=== PATIENT | male | born 1950 | race Asian ===

== ENCOUNTER 2017-10-27 18:57 | Inpatient (IN) | payer OTHER ==
[2017-10-27] MEDS ORDERED: ONDANSETRON 4 MG INJ IV (19:30)
[2017-10-27] MEDS ORDERED: hydrALAzine 20 MG INJ IV (19:30)
[2017-10-27] MEDS ORDERED: HYDROCODONE/APAP (5/325) TAB PO (19:30)
[2017-10-27] MEDS ORDERED: DOCUSATE SODIUM 100 MG CAP PO (19:30)
[2017-10-27] MEDS ORDERED: NACL 0.9% 3 ML SYG IV (19:30)
[2017-10-27] MEDS ORDERED: ACETAMINOPHEN 325 MG TAB PO (19:30)
[2017-10-27] MEDS ORDERED: ZOLPIDEM 5 MG TAB PO (19:30)
[2017-10-27] MEDS ORDERED: NITROGLYCERIN (SL) 0.4 MG TAB SL (19:30)
[2017-10-27] MEDS ORDERED: morphine LIQ (10 MG/5 ML) CUP PO (20:00)
[2017-10-28 01:40] LABS: TROPONIN-I 0.575 ng/ml (0.000-0.120)
[2017-10-28 05:49] LABS: ADD MAN DIFF? NO
[2017-10-28 05:55] LABS: BASOPHILS % 0.3 % (0.0-2.0); EOSINOPHILS # 0.3 10^3/ul (0.0-0.5); EOSINOPHILS % 5.1 % (0.0-7.0); HEMATOCRIT 27.4 % (42.0-52.0); HEMOGLOBIN 9.2 g/dl (14.0-18.0); LYMPHOCYTES # 1.7 10^3/ul (0.8-2.9); LYMPHOCYTES % 29.5 % (15.0-51.0); MEAN CORPUSCULAR HEMOGLOBIN 32.2 pg (29.0-33.0); MEAN CORPUSCULAR HGB CONC 33.6 g/dl (32.0-37.0); MEAN CORPUSCULAR VOLUME 95.8 fl (82.0-101.0); MEAN PLATELET VOLUME 11.2 fl (7.4-10.4); MONOCYTE # 0.3 10^3/ul (0.3-0.9); MONOCYTES % 5.6 % (0.0-11.0); NEUTROPHIL # 3.4 10^3/ul (1.6-7.5); NEUTROPHILS % 59.2 % (39.0-77.0); PLATELET COUNT 166 10^3/UL (140-415); RED BLOOD COUNT 2.86 10^6/ul (4.70-6.10); RED CELL DISTRIBUTION WIDTH 12.5 % (11.5-14.5)
[2017-10-28 05:55] LABS: WHITE BLOOD COUNT 5.7 10^3/ul (4.8-10.8)
[2017-10-28 06:11] LABS: ANION GAP 17 (8-16); BLOOD UREA NITROGEN 54 mg/dl (7-20); CALCIUM 7.9 mg/dl (8.4-10.2); CARBON DIOXIDE 24 mmol/L (21-31); CHLORIDE 110 mmol/L (97-110); CHOL/HDL RATIO 4.1 RATIO; CHOLESTEROL 167 mg/dl (100-200); CREATININE 10.13 mg/dl (0.61-1.24); GLUCOSE 82 mg/dl (70-220); HDL CHOLESTEROL 40 mg/dl (30-78); LDL CHOLESTEROL,CALCULATED 99 mg/dl; MAGNESIUM 2.1 mg/dl (1.7-2.5); PHOSPHORUS 6.8 mg/dl (2.5-4.9); POTASSIUM 4.8 mmol/L (3.5-5.1); SODIUM 146 mmol/L (135-144); TRIGLYCERIDES 139 mg/dl (0-149)
[2017-10-28 06:24] LABS: FREE THYROXINE INDEX (Calc) 2.26 ug/ml (0.65-3.89); T3 UPTAKE 36.4 % (23.5-40.5); T4 (THYROXINE) 6.2 ug/dl (5.5-11.0)
[2017-10-28 06:34] LABS: TROPONIN-I 0.566 ng/ml (0.000-0.120)
[2017-10-28 06:59] LABS: HEMOGLOBIN A1C 5.1 % (0-5.9)
[2017-10-28] MEDS: LOSARTAN 25 MG TAB PO (08:30)
[2017-10-28] MEDS: AMLODIPINE 10 MG TAB PO (08:30)
[2017-10-28] MEDS: ENOXAPARIN 40 MG/0.4 ML SYG SC (08:33)
[2017-10-28] MEDS: HEPARIN 5,000 UNIT/0.5 ML VIAL SC ×3 (09:02→21:30)
[2017-10-28 13:06] LABS: TROPONIN-I 0.471 ng/ml (0.000-0.120)
[2017-10-29 07:05] LABS: ANION GAP 19 (8-16); BLOOD UREA NITROGEN 60 mg/dl (7-20); CALCIUM 7.7 mg/dl (8.4-10.2); CARBON DIOXIDE 21 mmol/L (21-31); CHLORIDE 110 mmol/L (97-110); CREATININE 11.64 mg/dl (0.61-1.24); GLUCOSE 78 mg/dl (70-220); POTASSIUM 4.1 mmol/L (3.5-5.1); SODIUM 146 mmol/L (135-144); TROPONIN-I 0.393 ng/ml (0.000-0.120)
[2017-10-29] MEDS: ASPIRIN 81 MG TAB PO (08:51)
[2017-10-29] MEDS: HEPARIN 5,000 UNIT/0.5 ML VIAL SC (08:55)
[2017-10-29] MEDS: AMLODIPINE 10 MG TAB PO ×2 (08:56→14:51)
[2017-10-29] MEDS: LOSARTAN 25 MG TAB PO ×2 (08:56→14:50)
[2017-10-29 12:37] LABS: HEPATITIS B SURFACE ANTIGEN NEGATIVE (NEGATIVE)
== END 2017-10-29 15:57 | disposition home or self-care (01) | DRG 149 ==
LOC: MS3 18:57
PROVIDERS: Internal Medicine
PROC: 5A1D70Z Performance of Urinary Filtration, Intermittent, Less than 6 Hours Per Day (ICD-10-PCS; 2017-10-28)
PROC: 5A1D70Z Performance of Urinary Filtration, Intermittent, Less than 6 Hours Per Day (ICD-10-PCS; principal; 2017-10-29)
DX: R42 Dizziness and giddiness (principal); I21.4 Non-ST elevation (NSTEMI) myocardial infarction; N18.6 End stage renal disease; I21.A1 Myocardial infarction type 2; N17.9 Acute kidney failure, unspecified; I12.0 Hypertensive chronic kidney disease with stage 5 chronic kidney disease or end stage renal disease; E86.0 Dehydration; Z99.2 Dependence on renal dialysis; Z87.891 Personal history of nicotine dependence; Z79.82 Long term (current) use of aspirin; Z91.15 Patient's noncompliance with renal dialysis
CPT/HCPCS: 80048; 80061; 83036; 83735; 84100; 84436; 84479; 84484; 85025; 87340; 90935; 93005; 93306; 97161

== ENCOUNTER 2018-01-21 18:28 | Emergency (ER) | payer OTHER ==
[2018-01-21 19:59] LABS: ADD MAN DIFF? NO
[2018-01-21 20:08] LABS: WHITE BLOOD COUNT 5.9 10^3/ul (4.8-10.8)
[2018-01-21 20:08] LABS: BASOPHILS % 0.3 % (0.0-2.0); EOSINOPHILS # 0.2 10^3/ul (0.0-0.5); EOSINOPHILS % 2.5 % (0.0-7.0); HEMATOCRIT 29.1 % (42.0-52.0); HEMOGLOBIN 9.6 g/dl (14.0-18.0); LYMPHOCYTES # 1.7 10^3/ul (0.8-2.9); MEAN CORPUSCULAR HEMOGLOBIN 33.9 pg (29.0-33.0); MEAN CORPUSCULAR VOLUME 102.8 fl (82.0-101.0); MEAN PLATELET VOLUME 10.2 fl (7.4-10.4); MONOCYTE # 0.3 10^3/ul (0.3-0.9); MONOCYTES % 5.8 % (0.0-11.0); NEUTROPHIL # 3.7 10^3/ul (1.6-7.5); NEUTROPHILS % 63.1 % (39.0-77.0); PLATELET COUNT 207 10^3/UL (140-415); RED BLOOD COUNT 2.83 10^6/ul (4.70-6.10); RED CELL DISTRIBUTION WIDTH 14.8 % (11.5-14.5)
[2018-01-21 20:19] LABS: ANION GAP 23 (8-16); BLOOD UREA NITROGEN 88 mg/dl (7-20); CALCIUM 8.4 mg/dl (8.4-10.2); CARBON DIOXIDE 16 mmol/L (21-31); CHLORIDE 110 mmol/L (97-110); CREATININE 12.15 mg/dl (0.61-1.24); GLUCOSE 87 mg/dl (70-220); POTASSIUM 4.7 mmol/L (3.5-5.1); SODIUM 144 mmol/L (135-144)
[2018-01-21 20:37] LABS: INR 1.02; PROTIME 13.5 Sec (11.9-14.9); PT RATIO 1.1
== END 2018-01-21 21:37 | disposition home or self-care (01) ==
LOC: E/R 18:28
DX: T82.598A Other mechanical complication of other cardiac and vascular devices and implants, initial encounter (principal); N18.6 End stage renal disease; I12.0 Hypertensive chronic kidney disease with stage 5 chronic kidney disease or end stage renal disease; Y73.2 Prosthetic and other implants, materials and accessory gastroenterology and urology devices associated with adverse incidents; Z79.82 Long term (current) use of aspirin; Z87.891 Personal history of nicotine dependence
CPT/HCPCS: 80048; 83735; 85025; 85610; 85730; 93931; 99284-25

== ENCOUNTER 2018-02-21 13:34 | Day surgery (SDC) | payer OTHER ==
[2018-02-21] MEDS ORDERED: LIDOCAINE 1% (MDV) 20 ML INJ (14:08)
[2018-02-21] MEDS ORDERED: IODIXANOL LOCM 100 ML BTL ×2 (14:08→14:09)
[2018-02-21 14:20] LABS: ADD MAN DIFF? NO
[2018-02-21 14:22] LABS: BASOPHILS % 0.2 % (0.0-2.0); EOSINOPHILS # 0.3 10^3/ul (0.0-0.5); EOSINOPHILS % 4.7 % (0.0-7.0); HEMATOCRIT 32.8 % (42.0-52.0); HEMOGLOBIN 11.1 g/dl (14.0-18.0); LYMPHOCYTES # 1.2 10^3/ul (0.8-2.9); LYMPHOCYTES % 23.4 % (15.0-51.0); MEAN CORPUSCULAR HEMOGLOBIN 33.7 pg (29.0-33.0); MEAN CORPUSCULAR HGB CONC 33.8 g/dl (32.0-37.0); MEAN CORPUSCULAR VOLUME 99.7 fl (82.0-101.0); MEAN PLATELET VOLUME 10.5 fl (7.4-10.4); MONOCYTE # 0.3 10^3/ul (0.3-0.9); MONOCYTES % 5.1 % (0.0-11.0); NEUTROPHIL # 3.5 10^3/ul (1.6-7.5); NEUTROPHILS % 66.4 % (39.0-77.0); PLATELET COUNT 177 10^3/UL (140-415); RED BLOOD COUNT 3.29 10^6/ul (4.70-6.10)
[2018-02-21 14:22] LABS: WHITE BLOOD COUNT 5.3 10^3/ul (4.8-10.8)
[2018-02-21 14:39] LABS: ALANINE AMINOTRANSFERASE 25 IU/L (13-69); ALBUMIN 4.3 g/dl (3.3-4.9); ALBUMIN/GLOBULIN RATIO 1.07; ALKALINE PHOSPHATASE 67 IU/L (42-121); ANION GAP 23 (8-16); ASPARTATE AMINO TRANSFERASE 13 IU/L (15-46); BLOOD UREA NITROGEN 88 mg/dl (7-20); CALCIUM 8.6 mg/dl (8.4-10.2); CARBON DIOXIDE 18 mmol/L (21-31); CHLORIDE 104 mmol/L (97-110); CREATININE 12.25 mg/dl (0.61-1.24); GLUCOSE 160 mg/dl (70-220); POTASSIUM 5.1 mmol/L (3.5-5.1); SODIUM 140 mmol/L (135-144); TOTAL PROTEIN 8.3 g/dl (6.1-8.1)
[2018-02-21 14:41] LABS: INR 0.93; PROTIME 12.5 Sec (11.9-14.9)
[2018-02-21 15:21] LABS: PARTIAL THROMBOPLASTIN TIME 36.2 Sec (25.0-35.0)
== END 2018-02-21 15:47 | disposition home or self-care (01) ==
LOC: SDS 13:34
DX: I12.0 Hypertensive chronic kidney disease with stage 5 chronic kidney disease or end stage renal disease (principal); N18.6 End stage renal disease; Z79.82 Long term (current) use of aspirin
CPT/HCPCS: 36005; 75820; 80053; 85025; 85610; 85730

== ENCOUNTER 2018-04-19 08:27 | Day surgery (SDC) | payer OTHER ==
[~2018-04-19 08:27] MED LIST: CEFAZOLIN 1 GM INJ
[2018-04-19 09:25] LABS: ADD MAN DIFF? NO
[2018-04-19 09:29] LABS: BASOPHILS % 0.4 % (0.0-2.0); EOSINOPHILS # 0.2 10^3/ul (0.0-0.5); EOSINOPHILS % 3.3 % (0.0-7.0); HEMATOCRIT 32.7 % (42.0-52.0); HEMOGLOBIN 10.8 g/dl (14.0-18.0); LYMPHOCYTES # 0.9 10^3/ul (0.8-2.9); MEAN CORPUSCULAR HEMOGLOBIN 32.2 pg (29.0-33.0); MEAN CORPUSCULAR VOLUME 97.6 fl (82.0-101.0); MEAN PLATELET VOLUME 11.2 fl (7.4-10.4); MONOCYTE # 0.2 10^3/ul (0.3-0.9); MONOCYTES % 4.5 % (0.0-11.0); NEUTROPHIL # 4.1 10^3/ul (1.6-7.5); NEUTROPHILS % 75.6 % (39.0-77.0); PLATELET COUNT 137 10^3/UL (140-415); RED BLOOD COUNT 3.35 10^6/ul (4.70-6.10); RED CELL DISTRIBUTION WIDTH 12.3 % (11.5-14.5)
[2018-04-19 09:29] LABS: WHITE BLOOD COUNT 5.4 10^3/ul (4.8-10.8)
[2018-04-19 09:49] LABS: INR 0.93; PROTIME 12.5 Sec (11.9-14.9)
[2018-04-19 09:51] LABS: ALANINE AMINOTRANSFERASE 22 IU/L (13-69); ALBUMIN 4.4 g/dl (3.3-4.9); ALBUMIN/GLOBULIN RATIO 1.41; ALKALINE PHOSPHATASE 79 IU/L (42-121); ANION GAP 18 (5-13); ASPARTATE AMINO TRANSFERASE 16 IU/L (15-46); BLOOD UREA NITROGEN 80 mg/dl (7-20); CALCIUM 9.2 mg/dl (8.4-10.2); CARBON DIOXIDE 18 mmol/L (21-31); CHLORIDE 108 mmol/L (97-110); CREATININE 12.03 mg/dl (0.61-1.24); Estimated GFR 4 mL/min (>60); GLUCOSE 100 mg/dl (70-220); POTASSIUM 5.4 mmol/L (3.5-5.1); SODIUM 144 mmol/L (135-144); TOTAL PROTEIN 7.5 g/dl (6.1-8.1)
[2018-04-19 10:23] LABS: PARTIAL THROMBOPLASTIN TIME 36.1 Sec (23.0-35.0)
[2018-04-19] MEDS ORDERED: MIDAZOLAM 1 MG/ML 2 ML INJ (10:38)
[2018-04-19] MEDS ORDERED: LIDOCAINE 2% (SDV) 5 ML INJ (10:38)
[2018-04-19] MEDS ORDERED: PROPOFOL 20 ML (10:38)
[2018-04-19] MEDS ORDERED: FENTAnyl 50 MCG/ML VIAL (10:39)
[2018-04-19] MEDS ORDERED: GELATIN SIZE 100 SPONGE ×2 (10:49→12:04)
[2018-04-19] MEDS ORDERED: LIDOCAINE 1% (STERILE-PAK) 30 ML INJ (10:49)
[2018-04-19] MEDS ORDERED: THROMBIN 5000 UNIT VIAL ×2 (10:50→12:04)
[2018-04-19] MEDS ORDERED: HEPARIN 1000 UNITS/NS (A-LINE) 0 ML (10:56)
[2018-04-19] MEDS ORDERED: PROCHLORPERAZINE 10 MG INJ IV (11:00)
[2018-04-19] MEDS ORDERED: OXYCODONE/ACETAMINOPHEN (5/325) TAB PO (11:00)
[2018-04-19] MEDS ORDERED: ONDANSETRON 4 MG INJ IV (11:00)
[2018-04-19] MEDS ORDERED: FENTAnyl 50 MCG/ML VIAL IV (11:00)
[2018-04-19] MEDS ORDERED: MEPERIDINE 25 MG INJ IV (11:00)
[2018-04-19] MEDS ORDERED: hydrALAzine 20 MG INJ IV (11:00)
[2018-04-19] MEDS ORDERED: HYDROmorphONE 1 MG/5 ML IV SYRINGE IV (11:00)
[2018-04-19] MEDS ORDERED: DIPHENHYDRAMINE 50 MG INJ IV (11:00)
[2018-04-19] MEDS ORDERED: LABETALOL HCL 20MG INJ IV (11:00)
[2018-04-19] MEDS ORDERED: METOCLOPRAMIDE 10 MG INJ (11:17)
[2018-04-19] MEDS ORDERED: DEXAMETHASONE 4 MG/ML 1 ML INJ (11:17)
[2018-04-19] MEDS ORDERED: FAMOTIDINE 20 MG INJ (11:17)
[2018-04-19] MEDS ORDERED: ONDANSETRON 4 MG INJ (11:17)
[2018-04-19] MEDS: BUPIVACAINE 0.25% (MPF) 30 ML INJ (12:18)
== END 2018-04-19 15:44 | disposition home or self-care (01) ==
LOC: SDS 08:27
DX: I12.0 Hypertensive chronic kidney disease with stage 5 chronic kidney disease or end stage renal disease (principal); N18.6 End stage renal disease
CPT/HCPCS: 36821; 71045; 80053; 85025; 85610; 85730; 93005

== ENCOUNTER 2018-07-27 11:13 | Day surgery (SDC) | payer OTHER ==
[2018-07-27 12:33] LABS: POTASSIUM 6.3 mmol/L (3.5-5.1)
[2018-07-27] MEDS ORDERED: HEPARIN 1000 UNITS/ML 10 ML INJ (12:51)
[2018-07-27] MEDS ORDERED: LIDOCAINE 1% (MDV) 20 ML INJ (12:51)
[2018-07-27] MEDS ORDERED: IODIXANOL LOCM 50 ML BTL (13:17)
== END 2018-07-27 14:23 | disposition home or self-care (01) ==
LOC: SDS 11:13
DX: T82.49XA Other complication of vascular dialysis catheter, initial encounter (principal); Y84.1 Kidney dialysis as the cause of abnormal reaction of the patient, or of later complication, without mention of misadventure at the time of the procedure; I12.0 Hypertensive chronic kidney disease with stage 5 chronic kidney disease or end stage renal disease; N18.6 End stage renal disease
CPT/HCPCS: 37248; 84132

== ENCOUNTER 2018-09-19 06:06 | Day surgery (SDC) | payer OTHER ==
[2018-09-19] MEDS ORDERED: BUPIVACAINE 0.25% (MPF) 30 ML INJ (06:32)
[2018-09-19] MEDS ORDERED: LIDOCAINE 1% (MPF) 30 ML INJ (06:33)
[2018-09-19 06:52] LABS: ADD MAN DIFF? NO
[2018-09-19 06:54] LABS: BASOPHILS % 0.3 % (0.0-2.0); EOSINOPHILS # 0.3 10^3/ul (0.0-0.5); EOSINOPHILS % 4.8 % (0.0-7.0); HEMATOCRIT 39.1 % (42.0-52.0); HEMOGLOBIN 12.5 g/dl (14.0-18.0); LYMPHOCYTES # 1.4 10^3/ul (0.8-2.9); LYMPHOCYTES % 22.4 % (15.0-51.0); MEAN CORPUSCULAR HEMOGLOBIN 31.6 pg (29.0-33.0); MEAN PLATELET VOLUME 10.8 fl (7.4-10.4); MONOCYTE # 0.2 10^3/ul (0.3-0.9); MONOCYTES % 3.9 % (0.0-11.0); NEUTROPHIL # 4.2 10^3/ul (1.6-7.5); NEUTROPHILS % 68.4 % (39.0-77.0); PLATELET COUNT 196 10^3/UL (140-415); RED BLOOD COUNT 3.95 10^6/ul (4.70-6.10); RED CELL DISTRIBUTION WIDTH 14.4 % (11.5-14.5)
[2018-09-19 06:54] LABS: WHITE BLOOD COUNT 6.2 10^3/ul (4.8-10.8)
[2018-09-19] MEDS ORDERED: SEVOFLURANE 15 MIN (07:00)
[2018-09-19 07:21] LABS: INR 0.95; PARTIAL THROMBOPLASTIN TIME 34.2 Sec (23.0-35.0); PROTIME 12.8 Sec (11.9-14.9)
[2018-09-19 07:23] LABS: ALANINE AMINOTRANSFERASE 11 IU/L (13-69); ALBUMIN 4.5 g/dl (3.3-4.9); ALBUMIN/GLOBULIN RATIO 1.21; ALKALINE PHOSPHATASE 71 IU/L (42-121); ANION GAP 16 (5-13); ASPARTATE AMINO TRANSFERASE 13 IU/L (15-46); BILIRUBIN,INDIRECT 0.1 mg/dl (0-1.1); BILIRUBIN,TOTAL 0.1 mg/dl (0.2-1.3); CALCIUM 9.6 mg/dl (8.4-10.2); CARBON DIOXIDE 21 mmol/L (21-31); CHLORIDE 107 mmol/L (97-110); Estimated GFR 4 mL/min (>60); GLUCOSE 82 mg/dl (70-220); SODIUM 144 mmol/L (135-144); TOTAL PROTEIN 8.2 g/dl (6.1-8.1)
[2018-09-19 07:27] LABS: BLOOD UREA NITROGEN 85 mg/dl (7-20); CREATININE 12.76 mg/dl (0.61-1.24)
[2018-09-19] MEDS ORDERED: PROPOFOL 20 ML (07:34)
[2018-09-19] MEDS ORDERED: LIDOCAINE 2% (SDV) 5 ML INJ (07:34)
[2018-09-19] MEDS ORDERED: CEFAZOLIN 1 GM INJ (07:36)
[2018-09-19] MEDS: HEPARIN 1000 UNITS/ML 10 ML INJ (08:02)
[2018-09-19] MEDS ORDERED: MEPERIDINE 25 MG INJ IV (08:30)
[2018-09-19] MEDS ORDERED: hydrALAzine 20 MG INJ IV (08:30)
[2018-09-19] MEDS ORDERED: MIDAZOLAM 1 MG/ML 2 ML INJ IV (08:30)
[2018-09-19] MEDS ORDERED: DIPHENHYDRAMINE 50 MG INJ IV (08:30)
[2018-09-19] MEDS ORDERED: LABETALOL HCL 20MG INJ IV (08:30)
[2018-09-19] MEDS ORDERED: OXYCODONE/ACETAMINOPHEN (5/325) TAB PO ×2 (08:30)
[2018-09-19] MEDS ORDERED: ONDANSETRON 4 MG INJ IV (08:30)
[2018-09-19] MEDS ORDERED: EPHEDrine SULFATE 50 MG/5 ML SYG IV (08:30)
[2018-09-19] MEDS ORDERED: METOCLOPRAMIDE 10 MG INJ IV (08:30)
[2018-09-19] MEDS ORDERED: HYDROmorphONE 1 MG/5 ML IV SYRINGE IV (08:30)
[2018-09-19] MEDS ORDERED: FENTAnyl 50 MCG/ML VIAL IV ×3 (08:30)
[2018-09-19] MEDS ORDERED: HEPARIN 1000 UNITS/ML 10 ML INJ ×2 (08:35→08:36)
[2018-09-19] MEDS: GELATIN SIZE 100 SPONGE (09:20)
[2018-09-19] MEDS: THROMBIN (BOVINE) 5,000 UNIT VIAL TP (09:20)
[2018-09-19] MEDS ORDERED: EPHEDrine 25 MG/5 ML SYG (09:30)
[2018-09-19] MEDS: HYDROmorphONE 1 MG/5 ML IV SYRINGE IV ×3 (10:06→10:38)
== END 2018-09-19 12:55 | disposition home or self-care (01) ==
LOC: SDS 06:06
DX: I12.0 Hypertensive chronic kidney disease with stage 5 chronic kidney disease or end stage renal disease (principal); N18.6 End stage renal disease
CPT/HCPCS: 36821; 71045; 80053; 85025; 85610; 85730; 93005